=== PATIENT | female | born 1960 | race Caucasian/White ===

== ENCOUNTER 2018-09-22 06:13 | Day surgery (SDC) | payer OTHER ==
[~2018-09-22] VITALS: Ht 160 cm; Wt 139.0 kg
[2018-09-22] MEDS ORDERED: LACTATED RINGERS 1,000 ML IV SCH (06:59)
[2018-09-22] MEDS ORDERED: LIDOCAINE-MPF 1%, 2ML INFIL ONE (07:00)
[2018-09-22] MEDS ORDERED: ASPI-496 PO (07:02)
[2018-09-22] MEDS ORDERED: LISINOPRIL PO (07:02)
[2018-09-22 07:31] VITALS: BP 150/91
[2018-09-22 08:03] LABS: CHLORIDE 103 mmol/L (98-107)
[2018-09-22] MEDS ORDERED: PROPOFOL 10 MG/ML, 50ML ONE (08:03)
[2018-09-22 08:04] LABS: ALBUMIN 3.8 g/dL (3.4-5.0); ANION GAP 9 mmol/L (5-15); CALCIUM 9.3 mg/dL (8.5-10.1)
[2018-09-22 08:07] LABS: ALANINE AMINOTRANSFERASE 32 U/L (12-78); ALKALINE PHOSPHATASE 86 U/L (45-117); BILIRUBIN,TOTAL 0.9 mg/dL (0.2-1.0); CREATININE 0.98 mg/dL (0.55-1.02); TOTAL PROTEIN 7.8 g/dL (6.4-8.2)
[2018-09-22] MEDS ORDERED: hydrALAzine 20 MG/ML, 1ML IV PRN (09:00)
[2018-09-22] MEDS ORDERED: KETOROLAC 30 MG/1 ML IV PRN (09:00)
[2018-09-22] MEDS ORDERED: OXYcodone 5 MG/5 ML ORAL.SOL UDC PO PRN (09:00)
[2018-09-22] MEDS ORDERED: MEPERIDINE/PF 25MG/0.5ML IVPush PRN (09:00)
[2018-09-22] MEDS ORDERED: HYDROmorphone 2 MG/ML, 1ML IVPush PRN (09:00)
[2018-09-22] MEDS ORDERED: LABETALOL 5MG/ML, 20ML IV PRN (09:00)
[2018-09-22] MEDS ORDERED: ACETAMINOPHEN 325 MG TABLET PO PRN (09:00)
[2018-09-22] MEDS ORDERED: DIAZEPAM 5 MG/ML, 2ML IVPush PRN (09:00)
[2018-09-22] MEDS ORDERED: FENTANYL PF 100 MCG/2ML IV PRN (09:00)
[2018-09-22] MEDS ORDERED: PROMETHAZINE 25 MG/ML, 1ML IV PRN (09:00)
[2018-09-22] MEDS ORDERED: ALBUTEROL SULFATE 2.5 MG/3 ML NPPB PRN (09:00)
== END 2018-09-22 10:20 | disposition home or self-care (01) ==
LOC: OUT 06:13
PROVIDERS: ATTEND Internal Medicine Gastroenterology
DX: K63.5 Polyp of colon (principal); K57.30 Diverticulosis of large intestine without perforation or abscess without bleeding; I10 Essential (primary) hypertension; E78.00 Pure hypercholesterolemia, unspecified; Z88.8 Allergy status to other drugs, medicaments and biological substances
CPT/HCPCS: 36415; 45380; 45385; 80053; 88305; J2704; J7120

== ENCOUNTER → 2018-10-16 | Outpatient (CLI) | payer OTHER ==
[~2018-10-16] MED LIST: ASPI-496 PO; LISINOPRIL PO; OMNIPAQUE 350 MG/ML, 100ML BOTTLE ONE
== END | disposition home or self-care (01) ==
LOC: CFH 11:08
PROVIDERS: ATTEND Physician Assistant Medical
DX: C18.7 Malignant neoplasm of sigmoid colon (principal); K76.0 Fatty (change of) liver, not elsewhere classified; K63.9 Disease of intestine, unspecified; I10 Essential (primary) hypertension; K62.5 Hemorrhage of anus and rectum
CPT/HCPCS: 74177; Q9967

== ENCOUNTER → 2018-11-19 | Outpatient (CLI) | payer OTHER ==
[~2018-11-19] MED LIST changes: +CALC-534 PO; +LISI1TAB7 PO; -OMNIPAQUE 350 MG/ML, 100ML BOTTLE ONE
[2018-11-19 08:57] LABS: BASOPHILS # (AUTO) 0.01 x10^3/uL (0-0.1); BASOPHILS % (AUTO) 0 % (0-1); EOSINOPHILS % (AUTO) 2 % (1-7); LYMPHOCYTES # (AUTO) 1.19 x10^3/uL (1-3.4); LYMPHOCYTES % (AUTO) 25 % (22-44); MD NO; MEAN CORPUSCULAR HEMOGLOBIN 28.4 pg (27.0-34.8); MEAN CORPUSCULAR HGB CONC 33.6 g/dL (32.4-35.8); MEAN CORPUSCULAR VOLUME 84.4 fL (80-100); MEAN PLATELET VOLUME 8.8 fL (7.4-10.4); MONOCYTES # (AUTO) 0.26 x10^3/uL (0.2-0.8); MONOCYTES % (AUTO) 6 % (2-9); NEUTROPHILS # (AUTO) 3.22 x10^3/uL (1.8-6.8); NEUTROPHILS % (AUTO) 67 % (42-75); PLATELET COUNT 214 x10^3/uL (130-400); RED CELL DISTRIBUTION WIDTH 14.1 % (9.6-15.2)
[2018-11-19 09:13] LABS: ALANINE AMINOTRANSFERASE 23 U/L (12-78); ALBUMIN 3.3 g/dL (3.4-5.0); ANION GAP 9 mmol/L (5-15); CALCIUM 8.9 mg/dL (8.5-10.1); CHLORIDE 107 mmol/L (98-107); CREATININE 0.96 mg/dL (0.55-1.02)
[2018-11-19 09:20] LABS: ALKALINE PHOSPHATASE 74 U/L (45-117); BILIRUBIN,TOTAL 0.5 mg/dL (0.2-1.0); TOTAL PROTEIN 7.1 g/dL (6.4-8.2)
== END | disposition home or self-care (01) ==
LOC: STAR 07:46
PROVIDERS: ATTEND Surgery
DX: Z00.01 Encounter for general adult medical examination with abnormal findings (principal); D64.9 Anemia, unspecified; R53.83 Other fatigue
CPT/HCPCS: 36415; 80053; 82378; 85025; 93005

== ENCOUNTER 2018-11-25 08:15 | Inpatient (IN) | payer OTHER ==
[~2018-11-25] VITALS: Ht 160 cm; Wt 132.5 kg
[~2018-11-25 08:15] MED LIST changes: +BUPIVACAINE/PF 0.5% ONE; +INDOCYANINE GREEN 25 MG VIAL ONE
[2018-11-25] MEDS ORDERED: LACTATED RINGERS 1,000 ML IV SCH (08:47)
[2018-11-25] MEDS ORDERED: ONDANSETRON 2MG/ML, 2ML ONE (08:57)
[2018-11-25] MEDS ORDERED: CEFOTETAN 1 GM ONE (08:57)
[2018-11-25] MEDS ORDERED: DEXAMETHASONE 4 MG/ML, 1ML ONE (08:57)
[2018-11-25] MEDS ORDERED: SUCCINYLCHOLINE 20 MG/ML, 10ML ONE (08:57)
[2018-11-25] MEDS ORDERED: PROPOFOL 10 MG/ML, 20ML ONE (08:57)
[2018-11-25] MEDS ORDERED: METOPROLOL 1 MG/ML, 5ML ONE (08:57)
[2018-11-25] MEDS ORDERED: hydrALAzine 20 MG/ML, 1ML ONE (08:57)
[2018-11-25] MEDS ORDERED: ROCURONIUM 10 MG/ML,10ML ONE (08:57)
[2018-11-25] MEDS ORDERED: SUGAMMADEX 200 MG/2 ML IVPush ONE (08:58)
[2018-11-25 09:11] VITALS: BP 110/75
[2018-11-25] MEDS ORDERED: GABAPENTIN 300 MG CAPSULE ONE ×2 (10:09→11:30)
[2018-11-25] MEDS ORDERED: ACETAMINOPHEN 500 MG TABLET ONE ×2 (10:09→11:30)
[2018-11-25] MEDS ORDERED: MIDAZOLAM 1 MG/ML, 2ML ONE (11:00)
[2018-11-25] MEDS ORDERED: FENTANYL PF 250 MCG/5ML ONE ×3 (11:00→14:51)
[2018-11-25] MEDS ORDERED: PROMETHAZINE 25 MG/ML, 1ML IV PRN (14:00)
[2018-11-25] MEDS ORDERED: OXYcodone 5 MG/5 ML ORAL.SOL UDC PO PRN (14:00)
[2018-11-25] MEDS ORDERED: HYDROmorphone 2 MG/ML, 1ML IVPush PRN (14:00)
[2018-11-25] MEDS ORDERED: ALBUTEROL SULFATE 2.5 MG/3 ML NPPB PRN (14:00)
[2018-11-25] MEDS ORDERED: HALOPERIDOL 5 MG/ML IV PRN (14:00)
[2018-11-25] MEDS ORDERED: FENTANYL PF 100 MCG/2ML IV PRN (14:00)
[2018-11-25] MEDS ORDERED: LABETALOL 5MG/ML, 20ML IV PRN (14:00)
[2018-11-25] MEDS ORDERED: hydrALAzine 20 MG/ML, 1ML IV PRN (14:00)
[2018-11-25] MEDS ORDERED: D5%-0.45NACL+KCL 20MEQ 1,000 ML IV SCH (16:21)
[2018-11-25] MEDS ORDERED: DIPHENHYDRAMINE 50 MG/ML, 1ML IVPush PRN (16:30)
[2018-11-25] MEDS ORDERED: HYDROmorphone 1 MG/ML, 1ML INJ IVPush PRN (16:30)
[2018-11-25] MEDS ORDERED: SCOPOLAMINE PATCH, 1.5MG PATCH.TD72 TD PRN (16:30)
[2018-11-25] MEDS ORDERED: OXYcodone IR 5MG TABLET PO PRN (16:30)
[2018-11-25] MEDS ORDERED: LORazepam 2 MG/ML, 1ML IVPush PRN (16:30)
[2018-11-25] MEDS ORDERED: DEXAMETHASONE 4 MG/ML, 1ML IVPush PRN (16:30)
[2018-11-25] MEDS ORDERED: DIPHENHYDRAMINE 25 MG CAPSULE PO PRN (16:30)
[2018-11-25] MEDS ORDERED: CALCIUM CARBONATE 500 MG TAB.CHEW PO PRN (16:30)
[2018-11-25] MEDS ORDERED: HALOPERIDOL 5 MG/ML ONE (16:36)
[2018-11-25] MEDS ORDERED: PROMETHAZINE 25 MG/ML, 1ML ONE (16:58)
[2018-11-25] MEDS ORDERED: FENTANYL PF 100 MCG/2ML ONE (16:58)
[2018-11-25 19:32] VITALS: BP 142/83
[2018-11-25] MEDS: ENOXAPARIN 40 MG/0.4 ML SQ SCH (20:19)
[2018-11-25] MEDS: IBUPROFEN 800 MG TABLET PO SCH (20:20)
[2018-11-25] MEDS: ACETAMINOPHEN 100 ML IVPB SCH (20:20)
[2018-11-25 23:47] VITALS: BP 104/70
[2018-11-26] MEDS: ACETAMINOPHEN 100 ML IVPB SCH ×3 (02:21→13:54)
[2018-11-26 03:51] LABS: BASOPHILS # (AUTO) 0.01 x10^3/uL (0-0.1); BASOPHILS % (AUTO) 0 % (0-1); EOSINOPHILS % (AUTO) 0 % (1-7); LYMPHOCYTES # (AUTO) 0.51 x10^3/uL (1-3.4); LYMPHOCYTES % (AUTO) 7 % (22-44); MD NO; MEAN CORPUSCULAR HEMOGLOBIN 28.6 pg (27.0-34.8); MEAN CORPUSCULAR HGB CONC 34.2 g/dL (32.4-35.8); MEAN CORPUSCULAR VOLUME 83.8 fL (80-100); MEAN PLATELET VOLUME 9.1 fL (7.4-10.4); MONOCYTES # (AUTO) 0.35 x10^3/uL (0.2-0.8); MONOCYTES % (AUTO) 5 % (2-9); NEUTROPHILS # (AUTO) 6.03 x10^3/uL (1.8-6.8); NEUTROPHILS % (AUTO) 87 % (42-75); PLATELET COUNT 243 x10^3/uL (130-400); RED BLOOD COUNT 4.89 x10^6/uL (3.82-5.3); RED CELL DISTRIBUTION WIDTH 13.9 % (9.6-15.2)
[2018-11-26 03:56] LABS: ANION GAP 7 mmol/L (5-15); CALCIUM 8.3 mg/dL (8.5-10.1); CHLORIDE 103 mmol/L (98-107); CREATININE 1.34 mg/dL (0.55-1.02)
[2018-11-26 04:18] VITALS: BP 129/78
[2018-11-26 06:31] VITALS: BP 114/75
[2018-11-26] MEDS: IBUPROFEN 800 MG TABLET PO SCH ×3 (08:03→21:40)
[2018-11-26 13:00] VITALS: BP 136/85
[2018-11-26] MEDS: ENOXAPARIN 40 MG/0.4 ML SQ SCH (17:48)
[2018-11-26] MEDS ORDERED: WARFARIN 2.5 MG TABLET PO-COUM ONE (18:00)
[2018-11-26 18:41] VITALS: BP 126/84
[2018-11-26] MEDS: ONDANSETRON 2MG/ML, 2ML IVPush PRN (21:41)
[2018-11-27 00:27] VITALS: BP 104/67
[2018-11-27 05:30] LABS: BASOPHILS # (AUTO) 0.01 x10^3/uL (0-0.1); BASOPHILS % (AUTO) 0 % (0-1); EOSINOPHILS % (AUTO) 0 % (1-7); LYMPHOCYTES # (AUTO) 0.42 x10^3/uL (1-3.4); LYMPHOCYTES % (AUTO) 6 % (22-44); MD NO; MEAN CORPUSCULAR HEMOGLOBIN 28.1 pg (27.0-34.8); MEAN CORPUSCULAR HGB CONC 33.6 g/dL (32.4-35.8); MEAN CORPUSCULAR VOLUME 83.8 fL (80-100); MEAN PLATELET VOLUME 9.1 fL (7.4-10.4); MONOCYTES # (AUTO) 0.17 x10^3/uL (0.2-0.8); MONOCYTES % (AUTO) 2 % (2-9); NEUTROPHILS % (AUTO) 92 % (42-75); PLATELET COUNT 221 x10^3/uL (130-400); RED CELL DISTRIBUTION WIDTH 13.9 % (9.6-15.2)
[2018-11-27 05:36] LABS: ANION GAP 9 mmol/L (5-15); CALCIUM 8.8 mg/dL (8.5-10.1); CHLORIDE 101 mmol/L (98-107)
[2018-11-27 05:37] LABS: CREATININE 1.09 mg/dL (0.55-1.02)
[2018-11-27] MEDS: IBUPROFEN 800 MG TABLET PO SCH ×3 (08:17→21:05)
[2018-11-27] MEDS: ONDANSETRON 2MG/ML, 2ML IVPush PRN (08:36)
[2018-11-27 08:41] VITALS: BP 128/87
[2018-11-27 13:49] VITALS: BP 147/87
[2018-11-27] MEDS: ENOXAPARIN 40 MG/0.4 ML SQ SCH (17:45)
[2018-11-27 18:55] VITALS: BP 134/82
[2018-11-28 01:07] VITALS: BP 108/68
[2018-11-28 03:59] LABS: ANION GAP 8 mmol/L (5-15); CALCIUM 8.6 mg/dL (8.5-10.1); CHLORIDE 103 mmol/L (98-107); CREATININE 1.13 mg/dL (0.55-1.02)
[2018-11-28 04:05] LABS: BASOPHILS # (AUTO) 0.02 x10^3/uL (0-0.1); BASOPHILS % (AUTO) 0 % (0-1); EOSINOPHILS # (AUTO) 0.18 x10^3/uL (0-0.4); EOSINOPHILS % (AUTO) 3 % (1-7); LYMPHOCYTES # (AUTO) 0.99 x10^3/uL (1-3.4); LYMPHOCYTES % (AUTO) 18 % (22-44); MD NO; MEAN CORPUSCULAR HEMOGLOBIN 28.3 pg (27.0-34.8); MEAN CORPUSCULAR HGB CONC 33.7 g/dL (32.4-35.8); MEAN PLATELET VOLUME 9.5 fL (7.4-10.4); MONOCYTES # (AUTO) 0.34 x10^3/uL (0.2-0.8); MONOCYTES % (AUTO) 6 % (2-9); NEUTROPHILS % (AUTO) 73 % (42-75); PLATELET COUNT 195 x10^3/uL (130-400); RED BLOOD COUNT 4.28 x10^6/uL (3.82-5.3); RED CELL DISTRIBUTION WIDTH 14.1 % (9.6-15.2)
[2018-11-28] MEDS: IBUPROFEN 800 MG TABLET PO SCH (07:40)
[2018-11-28 08:00] VITALS: BP 127/87
[2018-11-28] MEDS ORDERED: OXYC-302 PO (09:01)
== END 2018-11-28 09:54 | disposition home or self-care (01) | DRG 330 ==
LOC: ORIP 08:15 → 4NOR 17:37 → DCLOUNGE 11-28 09:45
PROVIDERS: ADMIT Surgery; ATTEND Surgery
PROC: 0DNW4ZZ Release Peritoneum, Percutaneous Endoscopic Approach (ICD-10-PCS; 2018-11-25)
PROC: 0WPF4JZ Removal of Synthetic Substitute from Abdominal Wall, Percutaneous Endoscopic Approach (ICD-10-PCS; 2018-11-25)
PROC: 8E0W4CZ Robotic Assisted Procedure of Trunk Region, Percutaneous Endoscopic Approach (ICD-10-PCS; 2018-11-25)
PROC: 3E0T3BZ Introduction of Anesthetic Agent into Peripheral Nerves and Plexi, Percutaneous Approach (ICD-10-PCS; 2018-11-25)
PROC: 0DBP4ZZ Excision of Rectum, Percutaneous Endoscopic Approach (ICD-10-PCS; 2018-11-25)
PROC: 0DTN4ZZ Resection of Sigmoid Colon, Percutaneous Endoscopic Approach (ICD-10-PCS; principal; 2018-11-25 10:30)
DX: C18.7 Malignant neoplasm of sigmoid colon (principal); Z68.43 Body mass index [BMI] 50.0-59.9, adult; K43.6 Other and unspecified ventral hernia with obstruction, without gangrene; K63.9 Disease of intestine, unspecified; E66.01 Morbid (severe) obesity due to excess calories; K66.0 Peritoneal adhesions (postprocedural) (postinfection); I10 Essential (primary) hypertension
CPT/HCPCS: 36415; J3490; 80048; 85025; 86850; 86900; 88305; 88309; 88341; 88342; G0378; J0131; J1100; J1650; J2250; J2405; J2550; J2704; J3010; J0330; J0360; J1630; J3480; J7120

== ENCOUNTER 2019-03-09 09:51 | Day surgery (SDC) | payer OTHER ==
[~2019-03-09] VITALS: Ht 157.5 cm; Wt 125.0 kg
[2019-03-09 10:23] VITALS: BP 160/97
== END 2019-03-09 14:10 | disposition home or self-care (01) ==
LOC: OUT 09:51
PROVIDERS: ATTEND Specialist
DX: Z45.2 Encounter for adjustment and management of vascular access device (principal); C54.1 Malignant neoplasm of endometrium; C56.9 Malignant neoplasm of unspecified ovary; I10 Essential (primary) hypertension; Z79.82 Long term (current) use of aspirin; Z90.49 Acquired absence of other specified parts of digestive tract; Z90.710 Acquired absence of both cervix and uterus; Z72.89 Other problems related to lifestyle
CPT/HCPCS: 36561; 76937; 77001; 99156; 99157; C1788; C1894; J0690; J1642; J2250; J3010; J7030; J2310

== ENCOUNTER 2019-03-13 09:37 | Emergency (ER) | payer OTHER ==
[~2019-03-13] VITALS: Ht 157.5 cm; Wt 123.0 kg
[2019-03-13 14:42] VITALS: BP 133/66
== END 2019-03-13 14:44 | disposition home or self-care (01) ==
LOC: ED 10:35
DX: E86.0 Dehydration (principal); N28.9 Disorder of kidney and ureter, unspecified; R11.10 Vomiting, unspecified; R19.7 Diarrhea, unspecified; D70.9 Neutropenia, unspecified; I10 Essential (primary) hypertension; Z85.9 Personal history of malignant neoplasm, unspecified
CPT/HCPCS: 36415; 80053; 81003; 83690; 85025; 87046; 87252; 87324; 87427; 96361; 96374; 96375; 99283; J1200; J2270; J2765; J7030

== ENCOUNTER 2019-03-17 09:56 | Inpatient (IN) | payer OTHER ==
[~2019-03-17] VITALS: Ht 157.5 cm; Wt 135.1 kg
[2019-03-22 15:59] VITALS: BP 144/87
== END 2019-03-22 14:45 | disposition home or self-care (01) | DRG 314 ==
LOC: ED 10:57 → EDIP 12:22 → 3NW 13:17
PROVIDERS: ADMIT Internal Medicine; ATTEND Internal Medicine
PROC: 0JPT0WZ Removal of Totally Implantable Vascular Access Device from Trunk Subcutaneous Tissue and Fascia, Open Approach (ICD-10-PCS; principal; 2019-03-17)
PROC: 02PYX3Z Removal of Infusion Device from Great Vessel, External Approach (ICD-10-PCS; 2019-03-17)
DX: T80.211A Bloodstream infection due to central venous catheter, initial encounter (principal); D61.810 Antineoplastic chemotherapy induced pancytopenia; E43 Unspecified severe protein-calorie malnutrition; A40.8 Other streptococcal sepsis; C56.9 Malignant neoplasm of unspecified ovary; Z68.43 Body mass index [BMI] 50.0-59.9, adult; C78.5 Secondary malignant neoplasm of large intestine and rectum; T81.31XA Disruption of external operation (surgical) wound, not elsewhere classified, initial encounter; E66.01 Morbid (severe) obesity due to excess calories; E83.42 Hypomagnesemia; E87.6 Hypokalemia; I10 Essential (primary) hypertension; T45.1X5A Adverse effect of antineoplastic and immunosuppressive drugs, initial encounter; D64.81 Anemia due to antineoplastic chemotherapy; R11.2 Nausea with vomiting, unspecified; Y83.8 Other surgical procedures as the cause of abnormal reaction of the patient, or of later complication, without mention of misadventure at the time of the procedure; Y92.89 Other specified places as the place of occurrence of the external cause; Z82.49 Family history of ischemic heart disease and other diseases of the circulatory system; Z90.49 Acquired absence of other specified parts of digestive tract
CPT/HCPCS: 36415; 77001; 84145; 96374; 99285; J3490; 36590; 71045; 80048; 80053; 83605; 83735; 84100; 85025; 87040; 87070; 87075; 87205; 93005; 99156; 99157; G0378; J0295; J0696; J1650; J1885; J2250; J2543; J3010; J3370; J3475; J3480; J7070; J2310; J7040; J7050

== ENCOUNTER 2019-03-31 14:53 | Outpatient (CLI) | payer OTHER ==
[~2019-03-31 14:53] MED LIST changes: +ACET325T26 PO; -BUPIVACAINE/PF 0.5% ONE; +CEFD300C37 PO; -INDOCYANINE GREEN 25 MG VIAL ONE; +LACT1TAB13 PO; +LISI1TAB20 PO; -LISI1TAB7 PO; +OXYC-302 PO
[2019-04-30] MEDS ORDERED: RIVA10TA2 PO (08:24)
[2019-04-30] MEDS ORDERED: OXYC-302 PO (08:26)
[2019-05-19] MEDS ORDERED: PYRI25TA2 PO (18:22)
== END 2019-03-31 23:59 | disposition home or self-care (01) ==
LOC: CFH 14:53
PROVIDERS: ATTEND Physician Assistant
DX: I82.411 Acute embolism and thrombosis of right femoral vein (principal); I82.431 Acute embolism and thrombosis of right popliteal vein

== ENCOUNTER 2019-05-14 10:11 | Outpatient (CLI) | payer OTHER ==
[~2019-05-14] VITALS: Ht 157.5 cm; Wt 129.2 kg
[2019-05-14 09:10] VITALS: BP 137/84
[~2019-05-14 10:11] MED LIST changes: +RIVA10TA2 PO
[2019-05-14] MEDS ORDERED: MAGNESIUM SULFATE PMX 2GM/50ML 50 ML IVPB ONE (11:00)
[2019-05-14 11:38] LABS: MEAN CORPUSCULAR HEMOGLOBIN 29.1 pg (27.0-34.8); MEAN CORPUSCULAR HGB CONC 33.8 g/dL (32.4-35.8); MEAN CORPUSCULAR VOLUME 86.2 fL (80-100); MEAN PLATELET VOLUME 8.9 fL (7.4-10.4); PLATELET COUNT 167 x10^3/uL (130-400); RED BLOOD COUNT 3.07 x10^6/uL (3.82-5.3); RED CELL DISTRIBUTION WIDTH 20.8 % (9.6-15.2)
[2019-05-14] MEDS ORDERED: PROMETHAZINE 25 MG/ML, 1ML IM PRN (12:00)
[2019-05-14] MEDS ORDERED: FAMOTIDINE 20 MG/2 ML IVPush ONE (12:00)
[2019-05-14] MEDS ORDERED: ONDANSETRON 16 MG, DEXAMETHASONE 20 MG in SODIUM CHLORIDE 0.9% 50 ML IVPB ONE (12:00)
[2019-05-14] MEDS ORDERED: DIPHENHYDRAMINE 50 MG CAPSULE PO ONE (12:00)
[2019-05-14 12:06] LABS: MD YES
[2019-05-14 12:08] LABS: BAND#(MANUAL) 0.27 x10^3/uL; BANDS%(MANUAL) 6 % (0-7); EOS#(MANUAL) 0.05 x10^3/uL (0.0-0.4); EOS% (MANUAL) 1 % (1-7); LYMPH#(MANUAL) 0.68 x10^3/uL (1-3.4); LYMPHS% (MANUAL) 15 % (22-44); MONOS#(MANUAL) 0.09 x10^3/uL (0.3-2.7); MONOS% (MANUAL) 2 % (2-9); SEG#(MANUAL) 3.42 x10^3/uL (1.8-6.8); SEGS% (MANUAL) 76 % (42-75)
[2019-05-14 12:09] LABS: <PLATELET ESTIMATE> ADEQUATE; ANISOCYTOSIS 1+; MICROCYTOSIS 1+; POLYCHROMASIA 1+
[2019-05-14 12:10] LABS: <PLT MORPHOLOGY> NORMAL PLT MORPH
[2019-05-14] MEDS ORDERED: FILTER 0.22 MICRON IV ONE (12:30)
[2019-05-14] MEDS ORDERED: PACLITAXEL 350 MG in SODIUM CHLORIDE 0.9% 500 ML IV ONE (12:30)
[2019-05-14] MEDS ORDERED: CARBOPLATIN 900 MG in SODIUM CHLORIDE 0.9% 250 ML IV ONE (15:30)
[2019-05-19] MEDS ORDERED: PYRI25TA2 PO (18:22)
== END 2019-05-14 23:59 | disposition home or self-care (01) ==
LOC: INFUSION 10:11
PROVIDERS: ATTEND Specialist
DX: Z51.11 Encounter for antineoplastic chemotherapy (principal); C54.1 Malignant neoplasm of endometrium; I10 Essential (primary) hypertension; E66.01 Morbid (severe) obesity due to excess calories; Z68.43 Body mass index [BMI] 50.0-59.9, adult; Z90.710 Acquired absence of both cervix and uterus; Z79.82 Long term (current) use of aspirin; Z90.49 Acquired absence of other specified parts of digestive tract; Z86.718 Personal history of other venous thrombosis and embolism
CPT/HCPCS: 36415; 85025; 96367; 96368; 96375; 96413; 96415; 96417; J1100; J2405; J3475; J3490; J7040; J7050; J9045; J9267

== ENCOUNTER 2019-06-04 07:11 | Outpatient (CLI) | payer OTHER ==
[~2019-06-04] VITALS: Ht 157.5 cm; Wt 128.7 kg
[~2019-06-04 07:11] MED LIST changes: +PYRI25TA2 PO
[2019-06-04 08:37] LABS: BASOPHILS # (AUTO) 0.01 x10^3/uL (0-0.1); BASOPHILS % (AUTO) 0 % (0-1); EOSINOPHILS % (AUTO) 0 % (1-7); LYMPHOCYTES # (AUTO) 0.48 x10^3/uL (1-3.4); LYMPHOCYTES % (AUTO) 15 % (22-44); MD NO; MEAN CORPUSCULAR HEMOGLOBIN 30.6 pg (27.0-34.8); MEAN CORPUSCULAR HGB CONC 34.5 g/dL (32.4-35.8); MEAN CORPUSCULAR VOLUME 88.6 fL (80-100); MEAN PLATELET VOLUME 8.5 fL (7.4-10.4); MONOCYTES % (AUTO) 3 % (2-9); NEUTROPHILS # (AUTO) 2.59 x10^3/uL (1.8-6.8); NEUTROPHILS % (AUTO) 81 % (42-75); PLATELET COUNT 109 x10^3/uL (130-400); RED CELL DISTRIBUTION WIDTH 21.8 % (9.6-15.2)
[2019-06-04 08:45] VITALS: BP 136/89
[2019-06-04] MEDS ORDERED: MAGNESIUM SULFATE PMX 2GM/50ML 50 ML IVPB ONE (09:30)
[2019-06-04] MEDS ORDERED: DIPHENHYDRAMINE 50 MG/ML, 1ML IVPush ONE (10:30)
[2019-06-04] MEDS ORDERED: DIPHENHYDRAMINE 50 MG CAPSULE PO PRN (10:30)
[2019-06-04] MEDS ORDERED: ONDANSETRON 16 MG, DEXAMETHASONE 20 MG in SODIUM CHLORIDE 0.9% 50 ML IVPB ONE (10:30)
[2019-06-04] MEDS ORDERED: FAMOTIDINE 20 MG/2 ML IVPush ONE (10:30)
[2019-06-04] MEDS ORDERED: PROMETHAZINE 25 MG/ML, 1ML IM PRN (10:30)
[2019-06-04] MEDS ORDERED: PACLITAXEL 350 MG in SODIUM CHLORIDE 0.9% 500 ML IV ONE (11:00)
[2019-06-04] MEDS ORDERED: FILTER 0.22 MICRON IV ONE (11:00)
[2019-06-04] MEDS ORDERED: CARBOPLATIN 900 MG in SODIUM CHLORIDE 0.9% 250 ML IV ONE (14:00)
[2019-06-15] MEDS ORDERED: CEFD300C37 PO (07:11)
== END 2019-06-04 23:59 | disposition home or self-care (01) ==
LOC: INFUSION 07:11
PROVIDERS: ATTEND Specialist
DX: Z51.11 Encounter for antineoplastic chemotherapy (principal); C54.1 Malignant neoplasm of endometrium; I10 Essential (primary) hypertension; E66.01 Morbid (severe) obesity due to excess calories; Z68.43 Body mass index [BMI] 50.0-59.9, adult; Z86.718 Personal history of other venous thrombosis and embolism; Z86.2 Personal history of diseases of the blood and blood-forming organs and certain disorders involving the immune mechanism; Z91.048 Other nonmedicinal substance allergy status; Z90.710 Acquired absence of both cervix and uterus; Z79.82 Long term (current) use of aspirin
CPT/HCPCS: 36415; 36591; 85025; 96366; 96367; 96368; 96375; 96413; 96415; 96417; J1100; J2405; J3475; J3490; J7040; J7050; J9045; J9267

== ENCOUNTER 2019-08-18 11:02 | Outpatient (CLI) | payer OTHER ==
[2019-08-18 11:46] LABS: CREATININE 0.99 mg/dL (0.55-1.02)
[2019-08-18] MEDS ORDERED: OMNIPAQUE 350 MG/ML, 100ML BOTTLE ONE (14:01)
== END 2019-08-18 23:59 | disposition home or self-care (01) ==
LOC: RAD 11:02
PROVIDERS: ATTEND Specialist
DX: C56.9 Malignant neoplasm of unspecified ovary (principal); C78.80 Secondary malignant neoplasm of unspecified digestive organ; T85.898A Other specified complication of other internal prosthetic devices, implants and grafts, initial encounter; K46.9 Unspecified abdominal hernia without obstruction or gangrene; K86.89 Other specified diseases of pancreas; Y83.8 Other surgical procedures as the cause of abnormal reaction of the patient, or of later complication, without mention of misadventure at the time of the procedure; Y92.89 Other specified places as the place of occurrence of the external cause; Z90.49 Acquired absence of other specified parts of digestive tract; Z90.710 Acquired absence of both cervix and uterus; Z90.89 Acquired absence of other organs
CPT/HCPCS: 36415; 74177; 82565; Q9967

== ENCOUNTER 2020-01-31 17:30 | Outpatient (CLI) | payer OTHER | END 2020-01-31 23:59 | disposition home or self-care (01) | LOC: RAD 17:30 | PROVIDERS: ATTEND Obstetrics & Gynecology | DX: Z51.11 Encounter for antineoplastic chemotherapy (principal); C56.9 Malignant neoplasm of unspecified ovary; C54.1 Malignant neoplasm of endometrium; C79.9 Secondary malignant neoplasm of unspecified site; C78.80 Secondary malignant neoplasm of unspecified digestive organ; Z85.43 Personal history of malignant neoplasm of ovary | CPT/HCPCS: 71046 ==

== ENCOUNTER 2020-04-28 09:31 | Outpatient (CLI) | payer OTHER | END 2020-04-28 23:59 | disposition home or self-care (01) | LOC: CFH 09:31 | PROVIDERS: ATTEND Family Medicine | DX: Z12.31 Encounter for screening mammogram for malignant neoplasm of breast (principal) | CPT/HCPCS: 77067 ==